=== PATIENT | male | born 1950 | race Caucasian/White ===

== ENCOUNTER 2017-03-28 21:29 | Emergency (ER) | payer OTHER ==
[~2017-03-28] VITALS: Ht 182.9 cm; Wt 79.0 kg
[~2017-03-28 21:29] MED LIST: ALPR1TAB2 PO; ASPI-621 PO; ASPI325T4 PO; ATOR10TA PO; ATOR40TA78 PO; CLOP75TA22 PO; ENAL2.5T32 PO; ISOS60TA36 PO; METO-99 PO; METO25TA35 PO; NITR0.4T SL; RIVA10TA PO; TICA90TA PO; VALS160T3 PO
[2017-03-28] MEDS ORDERED: SODIUM CHLORIDE 0.9% 1,000ML IVBOLUS ONE (22:00)
[2017-03-28] MEDS ORDERED: SODIUM CHLORIDE FLUSH 10ML SYR IVF ONE (22:00)
[2017-03-28] MEDS ORDERED: PLEASE ENTER HEIGHT AND WEIGHT MC SCH (22:00)
[2017-03-28 22:28] LABS: ASPARTATE AMINO TRANSFERASE 19 U/L (15-37); BLOOD UREA NITROGEN 36 mg/dL (7-18)
[2017-03-28 23:27] VITALS: BP 112/71
== END 2017-03-28 23:30 | disposition home or self-care (01) ==
LOC: ED 22:54
DX: R11.2 Nausea with vomiting, unspecified (principal); R10.13 Epigastric pain; E78.5 Hyperlipidemia, unspecified; I11.0 Hypertensive heart disease with heart failure; I50.9 Heart failure, unspecified; I25.810 Atherosclerosis of coronary artery bypass graft(s) without angina pectoris; I25.2 Old myocardial infarction; Z95.1 Presence of aortocoronary bypass graft; F17.200 Nicotine dependence, unspecified, uncomplicated
CPT/HCPCS: 36415; 74020; 80053; 83690; 85025; 93005; 96360; 99285; J7030

== ENCOUNTER 2017-04-17 23:20 | Observation (INO) | payer OTHER ==
[~2017-04-17] VITALS: Ht 185.4 cm; Wt 78.3 kg
[2017-04-17] MEDS ORDERED: SODIUM CHLORIDE 0.9% 1,000 ML IV ONE (23:55)
[2017-04-17] MEDS ORDERED: ALBUTEROL/IPRATROPIUM 2.5MG/0.5MG, 3 ML ONE (23:59)
[2017-04-18] MEDS ORDERED: methylPREDNISolone SOD SUCC 125 MG/2 ML IVP ONE
[2017-04-18] MEDS ORDERED: SODIUM CHLORIDE FLUSH 10ML SYR IVF ONE
[2017-04-18] MEDS ORDERED: ALBUTEROL/IPRATROPIUM 2.5MG/0.5MG, 3 ML NPPB ONE
[2017-04-18] MEDS ORDERED: methylPREDNISolone SOD SUCC 125 MG/2 ML ONE (00:09)
[2017-04-18 00:21] LABS: ASPARTATE AMINO TRANSFERASE 34 U/L (15-37); BLOOD UREA NITROGEN 22 mg/dL (7-18)
[2017-04-18 00:29] LABS: IS PT STATUS REG ER OR PRE ER? YES
[2017-04-18 01:33] VITALS: BP 116/68
[2017-04-18] MEDS ORDERED: POLYETHYLENE GLYCOL 17 GM PACKET PO PRN (03:30)
[2017-04-18] MEDS ORDERED: TRAZODONE 50MG TABLET PO PRN (03:30)
[2017-04-18] MEDS ORDERED: BISACODYL 10 MG SUPP PR PRN (03:30)
[2017-04-18] MEDS ORDERED: LABETALOL 5MG/ML, 20ML IVPush PRN (03:30)
[2017-04-18] MEDS ORDERED: DOCUSATE 100 MG CAPSULE PO PRN (03:30)
[2017-04-18] MEDS ORDERED: ALBUTEROL/IPRATROPIUM 2.5MG/0.5MG, 3 ML NPPB PRN (04:00)
[2017-04-18] MEDS: NICOTINE 7 MG/24 HR PATCH.TD24 TD SCH (04:58)
[2017-04-18] MEDS: ALBUTEROL/IPRATROPIUM 2.5MG/0.5MG, 3 ML NPPB SCH ×4 (07:10→21:06)
[2017-04-18 07:15] LABS: IS PT STATUS REG ER OR PRE ER? NO
[2017-04-18 07:29] VITALS: BP 138/81
[2017-04-18] MEDS ORDERED: ATORVASTATIN 40 MG TABLET PO SCH (09:00)
[2017-04-18] MEDS ORDERED: MAGNESIUM SULFATE PMX 2GM/50ML 50 ML IV ONE (09:00)
[2017-04-18] MEDS: VALSARTAN 160 MG TABLET PO SCH (09:07)
[2017-04-18] MEDS: METOPROLOL TARTRATE 100 MG TABLET PO SCH (09:07)
[2017-04-18] MEDS: ASPIRIN 81 MG TABLET CHEW PO SCH (09:07)
[2017-04-18 09:10] VITALS: BP 156/96
[2017-04-18 12:49] LABS: IS PT STATUS REG ER OR PRE ER? NO
[2017-04-18 14:53] VITALS: BP 126/74
[2017-04-18] MEDS: RIVAROXABAN 10 MG TABLET PO SCH (18:06)
[2017-04-18 19:45] VITALS: BP 108/68
[2017-04-18] MEDS ORDERED: OMNIPAQUE 350 MG/ML, 100ML BOTTLE ONE (21:35)
[2017-04-19 00:42] VITALS: BP 104/63
[2017-04-19] MEDS: NICOTINE 7 MG/24 HR PATCH.TD24 TD SCH (03:19)
[2017-04-19] MEDS: ALBUTEROL/IPRATROPIUM 2.5MG/0.5MG, 3 ML NPPB SCH (07:00)
[2017-04-19 07:09] VITALS: BP 117/74
[2017-04-19] MEDS ORDERED: ASPI-515 PO (08:19)
[2017-04-19] MEDS: VALSARTAN 160 MG TABLET PO SCH (09:04)
[2017-04-19] MEDS: ASPIRIN 81 MG TABLET CHEW PO SCH (09:04)
[2017-04-19] MEDS: METOPROLOL TARTRATE 100 MG TABLET PO SCH (09:04)
[2017-04-19] MEDS: RIVAROXABAN 10 MG TABLET PO SCH (09:04)
[2017-04-19] MEDS ORDERED: ATORVASTATIN 40 MG TABLET PO SCH (21:00)
== END 2017-04-19 11:10 | disposition home or self-care (01) ==
LOC: ED 04-18 00:42 → INTOOBSV 04-18 00:54 → EDIP 04-18 00:54 → 5SO 04-18 01:29 → DCLOUNGE 04-19 10:55 → UNDODISIN 04-19 11:10
PROVIDERS: ADMIT Internal Medicine; ATTEND Internal Medicine
DX: R07.89 Other chest pain (principal); I25.10 Atherosclerotic heart disease of native coronary artery without angina pectoris; I11.0 Hypertensive heart disease with heart failure; I50.22 Chronic systolic (congestive) heart failure; B34.9 Viral infection, unspecified; J44.9 Chronic obstructive pulmonary disease, unspecified; I48.0 Paroxysmal atrial fibrillation; I25.2 Old myocardial infarction; I34.0 Nonrheumatic mitral (valve) insufficiency; E78.5 Hyperlipidemia, unspecified; F12.10 Cannabis abuse, uncomplicated; F41.9 Anxiety disorder, unspecified; F17.210 Nicotine dependence, cigarettes, uncomplicated; Z95.1 Presence of aortocoronary bypass graft; Z90.49 Acquired absence of other specified parts of digestive tract; Z85.840 Personal history of malignant neoplasm of eye; Z71.6 Tobacco abuse counseling; Z95.5 Presence of coronary angioplasty implant and graft; Z88.5 Allergy status to narcotic agent; Z82.49 Family history of ischemic heart disease and other diseases of the circulatory system; Z84.89 Family history of other specified conditions; Z79.01 Long term (current) use of anticoagulants; Z86.718 Personal history of other venous thrombosis and embolism; Z86.79 Personal history of other diseases of the circulatory system
CPT/HCPCS: 36415; 71010; 71275; 80053; 83735; 83880; 84439; 84443; 84484; 85025; 85379; 85610; 85730; 93005; 93306; 94640; 96361; 96365; 96375; 99285; G0378; J2930; J3475; J7030; Q9967; 96374; J7620

== ENCOUNTER → 2017-08-23 | Outpatient (CLI) | payer OTHER ==
[~2017-08-23] MED LIST changes: +ASPI-515 PO; +ASPI325T17 PO; -ASPI325T4 PO; -CLOP75TA22 PO; +CLOP75TA52 PO
[2017-08-23 12:36] LABS: ASPARTATE AMINO TRANSFERASE 23 U/L (15-37); BLOOD UREA NITROGEN 17 mg/dL (7-18)
== END | disposition home or self-care (01) ==
LOC: LAB 10:57
PROVIDERS: ATTEND Physician Assistant Medical
DX: I10 Essential (primary) hypertension (principal); E78.2 Mixed hyperlipidemia
CPT/HCPCS: 36415; 80053; 80061

== ENCOUNTER 2017-10-06 01:52 | Observation (INO) | payer OTHER ==
[~2017-10-06] VITALS: Ht 182.9 cm; Wt 79.2 kg
[2017-10-06] MEDS ORDERED: morphine SULFATE 10 MG/ML, 1ML ONE ×2 (02:15→03:37)
[2017-10-06] MEDS ORDERED: ONDANSETRON 2MG/ML, 2ML ONE ×2 (02:16→05:29)
[2017-10-06] MEDS: MORPHINE SULFATE 4 MG/ML, 1ML IVPush PRN ×2 (02:19→03:38)
[2017-10-06] MEDS ORDERED: ONDANSETRON 2MG/ML, 2ML IVPush ONE (02:30)
[2017-10-06 02:31] LABS: HEMATOCRIT 44.5 % (39.2-51.8); HEMOGLOBIN 14.7 g/dL (13.7-18.0); WHITE BLOOD COUNT 11.7 x10^3/uL (3.4-10)
[2017-10-06 02:43] LABS: ASPARTATE AMINO TRANSFERASE 18 U/L (15-37); BLOOD UREA NITROGEN 26 mg/dL (7-18)
[2017-10-06 02:48] LABS: IS PT STATUS REG ER OR PRE ER? YES
[2017-10-06] MEDS ORDERED: SODIUM CHLORIDE 0.9% 1,000 ML IV ONE (04:08)
[2017-10-06] MEDS ORDERED: MORPHINE SULFATE 4 MG/ML, 1ML IVPush PRN (04:30)
[2017-10-06] MEDS ORDERED: NITROGLYCERIN 0.4 MG/SPRAY SL PRN (04:30)
[2017-10-06] MEDS ORDERED: LORazepam 2 MG/ML, 1ML IVPush PRN (04:30)
[2017-10-06] MEDS ORDERED: ONDANSETRON 2MG/ML, 2ML IVPush PRN (04:30)
[2017-10-06] MEDS ORDERED: NITROGLYCERIN 0.4 MG BOTTLE (25 TABS) SL PRN (04:30)
[2017-10-06] MEDS ORDERED: hydrALAzine 20 MG/ML, 1ML IVPush PRN (04:30)
[2017-10-06] MEDS ORDERED: HYDROmorphone 1 MG/ML, 1ML ONE (05:29)
[2017-10-06] MEDS: ONDANSETRON 2MG/ML, 2ML IVP PRN ×3 (05:33→20:26)
[2017-10-06] MEDS: HYDROmorphone 2 MG/ML, 1ML IVPush PRN ×5 (05:34→20:27)
[2017-10-06 06:06] LABS: IS PT STATUS REG ER OR PRE ER? YES
[2017-10-06 08:15] LABS: IS PT STATUS REG ER OR PRE ER? YES
[2017-10-06 09:55] VITALS: BP_SYST 170; BP_SYST 185; BP_DIAS 110; BP_DIAS 98
[2017-10-06] MEDS: PANTOPRAZOLE 40 MG IV IVPush SCH (10:34)
[2017-10-06] MEDS: CLOPIDOGREL 75 MG TABLET PO SCH (10:36)
[2017-10-06] MEDS: VALSARTAN 160 MG TABLET PO SCH (10:36)
[2017-10-06] MEDS: ASPIRIN 81 MG TABLET EC PO SCH (10:36)
[2017-10-06] MEDS: SODIUM CHLORIDE FLUSH 10ML SYR IVF SCH ×2 (10:37→20:26)
[2017-10-06] MEDS: ATORVASTATIN 40 MG TABLET PO SCH (10:44)
[2017-10-06] MEDS: METOPROLOL TARTRATE 100 MG TABLET PO SCH (10:44)
[2017-10-06 11:27] LABS: IS PT STATUS REG ER OR PRE ER? NO
[2017-10-06 13:06] VITALS: BP 161/85
[2017-10-06 16:56] VITALS: BP 141/86
[2017-10-06] MEDS: RIVAROXABAN 10 MG TABLET PO SCH (17:33)
[2017-10-06] MEDS ORDERED: OMNIPAQUE 350 MG/ML, 100ML BOTTLE ONE (18:11)
[2017-10-06 20:17] VITALS: BP 128/78
[2017-10-06] MEDS: NICOTINE 14MG/24 HR PATCH.TD24 TD SCH (20:26)
[2017-10-07 01:13] VITALS: BP 130/83
[2017-10-07] MEDS: HYDROmorphone 2 MG/ML, 1ML IVPush PRN ×5 (01:21→23:05)
[2017-10-07 05:17] LABS: HEMATOCRIT 40.3 % (39.2-51.8); HEMOGLOBIN 13.3 g/dL (13.7-18.0); WHITE BLOOD COUNT 11.4 x10^3/uL (3.4-10)
[2017-10-07 05:20] LABS: BLOOD UREA NITROGEN 16 mg/dL (7-18)
[2017-10-07] MEDS: PANTOPRAZOLE 40 MG IV IVPush SCH (07:53)
[2017-10-07] MEDS: ONDANSETRON 2MG/ML, 2ML IVP PRN ×2 (07:55→16:25)
[2017-10-07 07:57] VITALS: BP 130/70
[2017-10-07] MEDS: ATORVASTATIN 40 MG TABLET PO SCH (08:04)
[2017-10-07] MEDS: ASPIRIN 81 MG TABLET EC PO SCH (08:04)
[2017-10-07] MEDS: SODIUM CHLORIDE FLUSH 10ML SYR IVF SCH ×2 (08:04→21:03)
[2017-10-07] MEDS: METOPROLOL TARTRATE 100 MG TABLET PO SCH (08:04)
[2017-10-07] MEDS: CLOPIDOGREL 75 MG TABLET PO SCH (08:04)
[2017-10-07] MEDS: VALSARTAN 160 MG TABLET PO SCH (08:10)
[2017-10-07] MEDS ORDERED: AMLODIPINE 5 MG TABLET PO SCH (11:30)
[2017-10-07 12:52] VITALS: BP 117/72
[2017-10-07] MEDS ORDERED: METHOCARBAMOL 750 MG TABLET PO ONE (13:30)
[2017-10-07] MEDS ORDERED: KETOROLAC 30 MG/1 ML IVPush PRN (13:30)
[2017-10-07] MEDS ORDERED: METO-95 PO (14:47)
[2017-10-07] MEDS: RIVAROXABAN 10 MG TABLET PO SCH (16:25)
[2017-10-07] MEDS ORDERED: FLU VACC QS2017-18 (36MOS+) UP/PF 0.5 ML IM-VACC ONE (17:00)
[2017-10-07 19:14] VITALS: BP 116/68
[2017-10-07] MEDS: NICOTINE 14MG/24 HR PATCH.TD24 TD SCH (20:30)
[2017-10-07] MEDS: METHOCARBAMOL 500 MG TABLET PO SCH ×2 (21:00→21:03)
[2017-10-07] MEDS: KETOROLAC 30 MG/1 ML IVPush SCH (21:03)
[2017-10-08] MEDS: KETOROLAC 30 MG/1 ML IVPush SCH ×4 (02:02→21:31)
[2017-10-08 02:29] VITALS: BP 149/91
[2017-10-08] MEDS: METHOCARBAMOL 500 MG TABLET PO SCH ×4 (06:08→21:32)
[2017-10-08] MEDS: METOPROLOL SUCCINATE 100 MG TAB.ER.24H PO SCH (06:08)
[2017-10-08 07:58] VITALS: BP 145/86
[2017-10-08] MEDS: PANTOPRAZOLE 40 MG IV IVPush SCH (08:18)
[2017-10-08] MEDS: ATORVASTATIN 40 MG TABLET PO SCH (10:32)
[2017-10-08] MEDS: ASPIRIN 81 MG TABLET EC PO SCH (10:32)
[2017-10-08] MEDS: VALSARTAN 160 MG TABLET PO SCH (10:32)
[2017-10-08] MEDS: CLOPIDOGREL 75 MG TABLET PO SCH (10:32)
[2017-10-08] MEDS: SODIUM CHLORIDE FLUSH 10ML SYR IVF SCH ×2 (10:33→21:31)
[2017-10-08 14:50] VITALS: BP 135/77
[2017-10-08] MEDS: HYDROmorphone 2 MG/ML, 1ML IVPush PRN ×2 (15:08→21:31)
[2017-10-08] MEDS: RIVAROXABAN 10 MG TABLET PO SCH (17:07)
[2017-10-08 19:07] VITALS: BP 127/81
[2017-10-08] MEDS: NICOTINE 14MG/24 HR PATCH.TD24 TD SCH (20:30)
[2017-10-08] MEDS: ONDANSETRON 2MG/ML, 2ML IVP PRN (21:31)
[2017-10-09 01:05] VITALS: BP 148/76
[2017-10-09] MEDS: KETOROLAC 30 MG/1 ML IVPush SCH ×2 (03:54→12:03)
[2017-10-09] MEDS: HYDROmorphone 2 MG/ML, 1ML IVPush PRN (03:54)
[2017-10-09] MEDS: METHOCARBAMOL 500 MG TABLET PO SCH ×2 (06:10→12:03)
[2017-10-09] MEDS: METOPROLOL SUCCINATE 100 MG TAB.ER.24H PO SCH (06:11)
[2017-10-09] MEDS ORDERED: PANTOPROZOLE 40MG TABLET PO SCH (07:30)
[2017-10-09 08:01] VITALS: BP 159/90
[2017-10-09] MEDS: VALSARTAN 160 MG TABLET PO SCH (08:27)
[2017-10-09] MEDS: ASPIRIN 81 MG TABLET EC PO SCH (08:27)
[2017-10-09] MEDS: CLOPIDOGREL 75 MG TABLET PO SCH (08:27)
[2017-10-09] MEDS: SODIUM CHLORIDE FLUSH 10ML SYR IVF SCH (08:27)
[2017-10-09] MEDS: ATORVASTATIN 40 MG TABLET PO SCH (08:27)
[2017-10-09 08:50] LABS: ASPARTATE AMINO TRANSFERASE 16 U/L (15-37); BLOOD UREA NITROGEN 28 mg/dL (7-18)
[2017-10-09 10:31] LABS: PATH.CAST-FLAG NOT PRESENT; SPERM-FLAG NOT PRESENT; SRC-FLAG NOT PRESENT; XTAL-FLAG NOT PRESENT; YLC-FLAG NOT PRESENT
[2017-10-09] MEDS ORDERED: IBUP-1222 PO (13:07)
[2017-10-09] MEDS ORDERED: TRAM50TA2 PO (13:07)
[2017-10-09] MEDS ORDERED: CYCL-259 PO (13:21)
[2017-10-09 13:28] VITALS: BP 132/80
== END 2017-10-09 15:35 | disposition home or self-care (01) ==
LOC: ED 02:09 → EDIP 04:08 → INTOOBSV 04:08 → 5SO 09:48 → 3NE 10-07 18:19 → DCLOUNGE 10-09 15:25
PROVIDERS: ADMIT Family Medicine; ATTEND Family Medicine
DX: R10.9 Unspecified abdominal pain (principal); I25.10 Atherosclerotic heart disease of native coronary artery without angina pectoris; I71.6 Thoracoabdominal aortic aneurysm, without rupture; I25.41 Coronary artery aneurysm; I24.9 Acute ischemic heart disease, unspecified; I71.2 Thoracic aortic aneurysm, without rupture; K40.20 Bilateral inguinal hernia, without obstruction or gangrene, not specified as recurrent; K43.9 Ventral hernia without obstruction or gangrene; N20.0 Calculus of kidney; N28.1 Cyst of kidney, acquired; I11.0 Hypertensive heart disease with heart failure; I50.9 Heart failure, unspecified; E78.5 Hyperlipidemia, unspecified; F17.200 Nicotine dependence, unspecified, uncomplicated; Z86.79 Personal history of other diseases of the circulatory system; Z95.1 Presence of aortocoronary bypass graft; Z95.5 Presence of coronary angioplasty implant and graft
CPT/HCPCS: 36415; 74177; 80048; 80053; 80061; 81001; 83690; 84484; 85025; 90471; 90686; 96361; 96374; 96375; 96376; 99285; C9113; G0378; J1170; J1885; J2405; J7030; Q9967

== ENCOUNTER 2018-08-31 07:32 | Observation (INO) | payer MEDICARE, OTHER ==
[~2018-08-31] VITALS: Ht 182.9 cm; Wt 81.9 kg
[~2018-08-31 07:32] MED LIST changes: +CYCL-259 PO; +IBUP-1222 PO; +METO-95 PO; +TRAM50TA2 PO
[2018-08-31 08:59] LABS: BASOPHILS # (AUTO) 0.06 x10^3/uL (0-0.1); BASOPHILS % (AUTO) 1 % (0-1); EOSINOPHILS # (AUTO) 0.27 x10^3/uL (0-0.4); EOSINOPHILS % (AUTO) 3 % (1-7); LYMPHOCYTES # (AUTO) 1.99 x10^3/uL (1-3.4); LYMPHOCYTES % (AUTO) 24 % (22-44); MD NO; MEAN CORPUSCULAR HGB CONC 33.7 g/dL (33.2-36.2); MEAN PLATELET VOLUME 8.4 fL (7.4-10.4); MONOCYTES # (AUTO) 0.67 x10^3/uL (0.2-0.8); MONOCYTES % (AUTO) 8 % (2-9); NEUTROPHILS # (AUTO) 5.42 x10^3/uL (1.8-6.8); NEUTROPHILS % (AUTO) 64 % (42-75); PLATELET COUNT 216 x10^3/uL (130-400); RED BLOOD COUNT 4.85 x10^6/uL (4.38-5.82); RED CELL DISTRIBUTION WIDTH 14.1 % (9.4-14.8)
[2018-08-31 09:07] LABS: ALBUMIN 3.7 g/dL (3.4-5.0); ANION GAP 4 mmol/L (5-15); CALCIUM 8.8 mg/dL (8.5-10.1); CHLORIDE 112 mmol/L (98-107); CREATININE 1.01 mg/dL (0.7-1.3)
[2018-08-31] MEDS ORDERED: SODIUM CHLORIDE FLUSH 10ML SYR IVF ONE (10:00)
[2018-08-31] MEDS ORDERED: EPHEDRINE 50 MG/ML, 1ML ONE (11:06)
[2018-08-31 12:44] VITALS: BP 151/98
[2018-08-31] MEDS ORDERED: FENTANYL PF 100 MCG/2ML ONE (14:11)
[2018-08-31] MEDS ORDERED: HYDROcodone/APAP 7.5-325MG/15ML UDC PO PRN (14:30)
[2018-08-31] MEDS ORDERED: FENTANYL PF 100 MCG/2ML IV PRN (14:30)
[2018-08-31] MEDS ORDERED: PROCHLORPERAZINE 5 MG/ML, 2ML IV PRN (14:30)
[2018-08-31] MEDS ORDERED: LABETALOL 5MG/ML, 20ML IV PRN (14:30)
[2018-08-31] MEDS ORDERED: HYDROmorphone 1 MG/ML, 1ML IV PRN (14:30)
[2018-08-31] MEDS ORDERED: MEPERIDINE/PF 25MG/0.5ML IVPush PRN (14:30)
[2018-08-31] MEDS ORDERED: hydrALAzine 20 MG/ML, 1ML IV PRN (14:30)
[2018-08-31] MEDS ORDERED: DIPHENHYDRAMINE 50 MG/ML, 1ML IVPush PRN (14:30)
[2018-08-31] MEDS ORDERED: NEOSTIGMINE 1 MG/ML, 10ML ONE ×2 (14:59→15:43)
[2018-08-31] MEDS ORDERED: BUPIVACAINE/PF 0.5% INFIL ONE (15:32)
[2018-08-31] MEDS ORDERED: SUCCINYLCHOLINE 20 MG/ML, 10ML ONE (15:43)
[2018-08-31] MEDS ORDERED: ROCURONIUM 10MG/ML,5ML ONE (15:43)
[2018-08-31] MEDS ORDERED: ONDANSETRON 2MG/ML, 2ML ONE (15:43)
[2018-08-31] MEDS ORDERED: CEFAZOLIN 1,000 MG ONE (15:43)
[2018-08-31] MEDS ORDERED: DEXAMETHASONE 4 MG/ML, 1ML ONE (15:43)
[2018-08-31] MEDS ORDERED: GLYCOPYRROLATE 0.2MG/1ML, 5ML ONE (15:43)
[2018-08-31] MEDS ORDERED: PROPOFOL 10 MG/ML, 20ML ONE (15:43)
[2018-08-31] MEDS ORDERED: HYDROcodone/APAP 5/325 TABLET PO PRN (16:00)
[2018-08-31] MEDS ORDERED: ONDANSETRON 2MG/ML, 2ML IVPush PRN (16:00)
[2018-08-31] MEDS ORDERED: HYDROmorphone 1 MG/ML, 1ML IM PRN (16:00)
[2018-08-31] MEDS ORDERED: ACETAMINOPHEN 325 MG TABLET PO PRN (16:00)
[2018-08-31] MEDS ORDERED: PROMETHAZINE 25 MG/ML, 1ML IM PRN (16:00)
[2018-08-31] MEDS ORDERED: HYDR-3240 PO (17:00)
[2018-08-31] MEDS ORDERED: ONDA4TAB7 PO (17:01)
== END 2018-08-31 18:32 | disposition home or self-care (01) ==
LOC: ED 09:16 → EDIP 09:39 → INTOOBSV 09:39 → 3NW 10:32
PROVIDERS: ADMIT Orthopaedic Surgery; ATTEND Orthopaedic Surgery
DX: S62.627B Displaced fracture of middle phalanx of left little finger, initial encounter for open fracture (principal); E78.5 Hyperlipidemia, unspecified; F12.90 Cannabis use, unspecified, uncomplicated; F17.210 Nicotine dependence, cigarettes, uncomplicated; I11.0 Hypertensive heart disease with heart failure; I25.10 Atherosclerotic heart disease of native coronary artery without angina pectoris; I25.2 Old myocardial infarction; I48.91 Unspecified atrial fibrillation; I50.9 Heart failure, unspecified; I71.4 Abdominal aortic aneurysm, without rupture; I73.9 Peripheral vascular disease, unspecified; J44.9 Chronic obstructive pulmonary disease, unspecified; Z87.442 Personal history of urinary calculi; Z95.1 Presence of aortocoronary bypass graft; Z95.5 Presence of coronary angioplasty implant and graft; W54.0XXA Bitten by dog, initial encounter; Y92.89 Other specified places as the place of occurrence of the external cause; Y93.89 Activity, other specified
CPT/HCPCS: 20690; 26735; 36415; 71045; 73140; 76000; 80048; 82040; 85025; 93005; 99285; G0378; J0330; J0690; J1100; J2405; J2704; J2710; J3010; J3490

== ENCOUNTER 2019-01-18 14:00 | Inpatient (IN) | payer MEDICARE, OTHER ==
[~2019-01-18] VITALS: Ht 182.9 cm; Wt 86.0 kg
[~2019-01-18 14:00] MED LIST changes: -ASPI-621 PO; +ASPI81TA45 PO; +HYDR-3240 PO; +ONDA4TAB7 PO; -RIVA10TA PO; +RIVA10TA2 PO
--- NOTE | 2019-01-18 14:54 | NUR ---
AFTER IV ESTABLISHED AND BLOOD DRAWN PT TO XRAY
[2019-01-18] MEDS ORDERED: ONDANSETRON 2MG/ML, 2ML IVPush ONE (15:00)
[2019-01-18 15:03] LABS: BASOPHILS # (AUTO) 0.03 x10^3/uL (0-0.1); BASOPHILS % (AUTO) 0 % (0-1); EOSINOPHILS # (AUTO) 0.11 x10^3/uL (0-0.4); EOSINOPHILS % (AUTO) 1 % (1-7); LYMPHOCYTES # (AUTO) 1.53 x10^3/uL (1-3.4); LYMPHOCYTES % (AUTO) 15 % (22-44); MD NO; MEAN CORPUSCULAR HEMOGLOBIN 29.5 pg (27.5-34.5); MEAN CORPUSCULAR HGB CONC 33.1 g/dL (33.2-36.2); MEAN PLATELET VOLUME 8.4 fL (7.4-10.4); MONOCYTES # (AUTO) 0.44 x10^3/uL (0.2-0.8); MONOCYTES % (AUTO) 4 % (2-9); NEUTROPHILS # (AUTO) 7.98 x10^3/uL (1.8-6.8); NEUTROPHILS % (AUTO) 79 % (42-75); PLATELET COUNT 212 x10^3/uL (130-400); RED BLOOD COUNT 5.68 x10^6/uL (4.38-5.82); RED CELL DISTRIBUTION WIDTH 14.1 % (9.4-14.8)
[2019-01-18 15:14] LABS: ALANINE AMINOTRANSFERASE 27 U/L (12-78); ALBUMIN 3.9 g/dL (3.4-5.0); ANION GAP 4 mmol/L (5-15); CHLORIDE 110 mmol/L (98-107); CREATININE 1.09 mg/dL (0.7-1.3)
[2019-01-18 15:18] LABS: ALKALINE PHOSPHATASE 137 U/L (45-117); BILIRUBIN,TOTAL 1.3 mg/dL (0.2-1.0); TOTAL PROTEIN 7.7 g/dL (6.4-8.2); TROPONIN I < 0.015 ng/mL (0.000-0.045)
[2019-01-18] MEDS ORDERED: MORPHINE SULFATE 4 MG/ML, 1ML ONE ×2 (15:42→17:21)
[2019-01-18] MEDS ORDERED: ONDANSETRON 2MG/ML, 2ML ONE ×2 (15:42→19:43)
--- NOTE | 2019-01-18 15:47 | NUR ---
TASK RN: Pt unhooked from monitors, ambulated to bathroom, no assistance required. Urine sample requested.
[2019-01-18] MEDS: MORPHINE SULFATE 4 MG/ML, 1ML IVPush PRN ×2 (15:55→17:24)
--- NOTE | 2019-01-18 15:55 | NUR ---
TASK RN: Pt back to room from bathroom, replaced on all monitors. Pt aware of plan for CT scan. Pt medicated per JAN.
[2019-01-18] MEDS ORDERED: LABETALOL 5 MG/ML SYRINGE IVPush ONE (16:00)
--- NOTE | 2019-01-18 16:25 | NUR ---
PAIN IMPROVED AFTER MEDICATED FOR SAME. BLOOD PRESSURE ALSO IMPROVED, 150/94.
[2019-01-18 16:28] LABS: MICROSCOPIC AUTO
[2019-01-18] MEDS ORDERED: OMNIPAQUE 350 MG/ML, 100ML BOTTLE ONE (16:56)
[2019-01-18 17:02] LABS: CULTURE INDICATED? NO
--- NOTE | 2019-01-18 17:24 | NUR ---
BREAK RN: Pt medicated per MAR.
--- NOTE | 2019-01-18 17:54 | NUR ---
dr eduardo spoke with dr elisha winn and dr banegas
--- NOTE | 2019-01-18 18:22 | NUR ---
REPORT TO VENOUS TELE AND REPORT TO [facility]. PT TO BE TRANSPORTED ON MONITOR TO OR BY TECH
[2019-01-18] MEDS ORDERED: BUPIVACAINE/PF-EPI 0.5% 1:200K ONE (18:29)
[2019-01-18] MEDS ORDERED: NEOSTIGMINE 1 MG/ML, 10ML ONE (18:56)
[2019-01-18] MEDS ORDERED: GLYCOPYRROLATE 0.2MG/1ML, 5ML ONE (18:56)
[2019-01-18] MEDS ORDERED: LABETALOL 5 MG/ML SYRINGE IVPush PRN (19:00)
[2019-01-18] MEDS ORDERED: FENTANYL PF 250 MCG/5ML ONE (19:24)
[2019-01-18] MEDS ORDERED: THROMBIN 5,000 UNIT VIAL TP ONE (19:34)
[2019-01-18] MEDS ORDERED: PHENYLEPHRINE 10 MG/ML ONE (19:43)
[2019-01-18] MEDS ORDERED: ROCURONIUM 10MG/ML,5ML ONE (19:43)
[2019-01-18] MEDS ORDERED: CEFOTETAN PMX 2GM/50ML 50 ML ONE (19:43)
[2019-01-18] MEDS ORDERED: PROPOFOL 10 MG/ML, 20ML ONE (19:43)
[2019-01-18] MEDS ORDERED: SUCCINYLCHOLINE 20 MG/ML, 10ML ONE (19:43)
[2019-01-18] MEDS ORDERED: DEXAMETHASONE 4 MG/ML, 1ML ONE (19:43)
[2019-01-18] MEDS ORDERED: MEPERIDINE/PF 25MG/0.5ML IVPush PRN (20:00)
[2019-01-18] MEDS ORDERED: HYDROcodone/APAP 7.5-325MG/15ML UDC PO PRN (20:00)
[2019-01-18] MEDS ORDERED: HYDROmorphone 2 MG/ML, 1ML IVPush PRN (20:00)
[2019-01-18] MEDS ORDERED: PROMETHAZINE 25 MG/ML, 1ML IV PRN (20:00)
[2019-01-18] MEDS ORDERED: FENTANYL PF 100 MCG/2ML IV PRN (20:00)
[2019-01-18] MEDS ORDERED: hydrALAzine 20 MG/ML, 1ML IV PRN (20:00)
[2019-01-18] MEDS ORDERED: HALOPERIDOL 5 MG/ML IV PRN (20:00)
[2019-01-18] MEDS ORDERED: HYDROcodone/APAP 7.5-325MG/15ML UDC ONE (20:22)
[2019-01-18] MEDS ORDERED: MEPERIDINE/PF 25MG/ML,1ML ONE (20:32)
[2019-01-18] MEDS ORDERED: MORPHINE SULFATE 4 MG/ML, 1ML IVPush PRN (21:30)
[2019-01-18] MEDS ORDERED: ONDANSETRON 2MG/ML, 2ML IVPush PRN (22:00)
[2019-01-19 00:07] VITALS: BP 119/72
[2019-01-19 04:00] VITALS: BP 109/72
[2019-01-19 07:00] VITALS: BP 117/77
[2019-01-19] MEDS: METOPROLOL SUCCINATE 100 MG TAB.ER.24H PO SCH (07:39)
[2019-01-19] MEDS: HYDROcodone/APAP 5/325 TABLET PO PRN ×3 (07:39→23:45)
[2019-01-19] MEDS: ATORVASTATIN 40 MG TABLET PO SCH (07:39)
[2019-01-19 13:01] VITALS: BP 104/68
[2019-01-19 21:15] VITALS: BP 114/74
[2019-01-20 02:19] VITALS: BP 109/68
[2019-01-20] MEDS: HYDROcodone/APAP 5/325 TABLET PO PRN ×2 (06:10→12:40)
[2019-01-20] MEDS: ATORVASTATIN 40 MG TABLET PO SCH (08:00)
[2019-01-20] MEDS: METOPROLOL SUCCINATE 100 MG TAB.ER.24H PO SCH (08:00)
[2019-01-20 08:04] VITALS: BP 108/61
[2019-01-20] MEDS ORDERED: TAMSULOSIN 0.4 MG CAP.ER.24H PO SCH (09:00)
[2019-01-20] MEDS ORDERED: HYDR-3240 PO (13:19)
[2019-01-20 14:10] VITALS: BP 132/73
== END 2019-01-20 16:09 | disposition home or self-care (01) | DRG 352 ==
LOC: ED 17:01 → EDIP 17:50 → 4NOR 21:10
PROVIDERS: ADMIT Family Medicine; ATTEND Family Medicine
PROC: 03HY32Z Insertion of Monitoring Device into Upper Artery, Percutaneous Approach (ICD-10-PCS; 2019-01-18)
PROC: 0YU60JZ Supplement Left Inguinal Region with Synthetic Substitute, Open Approach (ICD-10-PCS; principal; 2019-01-18 18:00)
DX: K40.30 Unilateral inguinal hernia, with obstruction, without gangrene, not specified as recurrent (principal); J44.9 Chronic obstructive pulmonary disease, unspecified; E78.5 Hyperlipidemia, unspecified; F12.10 Cannabis abuse, uncomplicated; I48.91 Unspecified atrial fibrillation; I71.4 Abdominal aortic aneurysm, without rupture; I11.0 Hypertensive heart disease with heart failure; I25.10 Atherosclerotic heart disease of native coronary artery without angina pectoris; I72.2 Aneurysm of renal artery; I25.41 Coronary artery aneurysm; I50.9 Heart failure, unspecified; I73.9 Peripheral vascular disease, unspecified; K43.9 Ventral hernia without obstruction or gangrene; N50.89 Other specified disorders of the male genital organs; R33.9 Retention of urine, unspecified; Z82.49 Family history of ischemic heart disease and other diseases of the circulatory system; I25.2 Old myocardial infarction; Z86.79 Personal history of other diseases of the circulatory system; Z95.1 Presence of aortocoronary bypass graft; Z85.828 Personal history of other malignant neoplasm of skin; Z88.8 Allergy status to other drugs, medicaments and biological substances; Z82.5 Family history of asthma and other chronic lower respiratory diseases
CPT/HCPCS: 36415; 74022; 74177; 80053; 81001; 84484; 85025; 86850; 86900; 93005; 96374; 96375; 96376; 99285; G0378; J1100; J2175; J2405; J2704; J2710; J3010; J3490; Q9967; C1781; J0330; J0360; J2370

== ENCOUNTER 2019-02-04 16:15 | Emergency (ER) | payer OTHER ==
[~2019-02-04] VITALS: Ht 182.9 cm; Wt 79.6 kg
--- NOTE | 2019-02-04 16:48 | NUR ---
Pt ambulated to room, CXR complete. Lab at bedside. Pt changing into gown. Daughter at bedside.
[2019-02-04 17:09] LABS: ALANINE AMINOTRANSFERASE 55 U/L (12-78); ALBUMIN 2.9 g/dL (3.4-5.0); ANION GAP 5 mmol/L (5-15); CALCIUM 8.8 mg/dL (8.5-10.1); CHLORIDE 110 mmol/L (98-107); CREATININE 0.99 mg/dL (0.7-1.3)
[2019-02-04 17:11] LABS: BASOPHILS # (AUTO) 0.04 x10^3/uL (0-0.1); BASOPHILS % (AUTO) 1 % (0-1); EOSINOPHILS # (AUTO) 0.29 x10^3/uL (0-0.4); EOSINOPHILS % (AUTO) 3 % (1-7); LYMPHOCYTES % (AUTO) 20 % (22-44); MD NO; MEAN CORPUSCULAR HGB CONC 33.7 g/dL (33.2-36.2); MEAN CORPUSCULAR VOLUME 89.1 fL (81-97); MEAN PLATELET VOLUME 7.1 fL (7.4-10.4); MONOCYTES # (AUTO) 0.79 x10^3/uL (0.2-0.8); MONOCYTES % (AUTO) 8 % (2-9); NEUTROPHILS # (AUTO) 6.58 x10^3/uL (1.8-6.8); NEUTROPHILS % (AUTO) 69 % (42-75); PLATELET COUNT 529 x10^3/uL (130-400); RED BLOOD COUNT 4.45 x10^6/uL (4.38-5.82); RED CELL DISTRIBUTION WIDTH 15.1 % (9.4-14.8)
[2019-02-04 17:14] LABS: ALKALINE PHOSPHATASE 202 U/L (45-117); BILIRUBIN,TOTAL 0.6 mg/dL (0.2-1.0); TOTAL PROTEIN 7.8 g/dL (6.4-8.2); TROPONIN I < 0.015 ng/mL (0.000-0.045)
--- NOTE | 2019-02-04 17:29 | NUR ---
Dr. Salmon at bedside to evaluate pt. POC discussed. PIV started.
[2019-02-04] MEDS ORDERED: MORPHINE SULFATE 4 MG/ML, 1ML ONE (17:42)
--- NOTE | 2019-02-04 17:47 | NUR ---
Pt medicated per JAN. Pt moved to room 26, as he complained that the television in room 23 was not working.
--- NOTE | 2019-02-04 17:59 | NUR ---
Pt to imaging, with tech, via gujojo.
[2019-02-04] MEDS ORDERED: MORPHINE SULFATE 4 MG/ML, 1ML IVPush PRN (18:00)
--- NOTE | 2019-02-04 18:50 | NUR ---
Pt back to room from imaging.
--- NOTE | 2019-02-04 19:05 | NUR ---
Dr. Salmon at bedside to discuss ED findings and POC.
[2019-02-04 19:30] VITALS: BP 134/64
--- NOTE | 2019-02-04 19:31 | NUR ---
Patient/Caregiver given discharge instructions and they have confirmed that they understand the instructions. Patient ambulatory with steady gait.
== END 2019-02-04 19:32 | disposition home or self-care (01) ==
LOC: ED 19:26
DX: L76.34 Postprocedural seroma of skin and subcutaneous tissue following other procedure (principal); I48.91 Unspecified atrial fibrillation; I25.2 Old myocardial infarction; J44.9 Chronic obstructive pulmonary disease, unspecified; I50.9 Heart failure, unspecified; Z72.9 Problem related to lifestyle, unspecified
CPT/HCPCS: 36415; 71045; 74177; 80053; 84484; 85025; 93005; 96374

== ENCOUNTER → 2019-03-13 | Outpatient (CLI) | payer OTHER ==
[~2019-03-13] MED LIST changes: +OMNIPAQUE 350 MG/ML, 100ML BOTTLE ONE
[2019-03-13 10:36] LABS: CREATININE 1.07 mg/dL (0.7-1.3)
== END | disposition home or self-care (01) ==
LOC: RAD 09:59
PROVIDERS: ATTEND Surgery Vascular Surgery
DX: I71.01 Dissection of thoracic aorta (principal); J43.9 Emphysema, unspecified; I71.4 Abdominal aortic aneurysm, without rupture; R91.8 Other nonspecific abnormal finding of lung field
CPT/HCPCS: 36415; 71275; 82565; Q9967

== ENCOUNTER 2019-04-28 11:11 | Emergency (ER) | payer OTHER ==
[~2019-04-28] VITALS: Ht 185.4 cm; Wt 78.8 kg
[~2019-04-28 11:11] MED LIST changes: -NITR0.4T SL; +NITR0.4T41 SL; -OMNIPAQUE 350 MG/ML, 100ML BOTTLE ONE
[2019-04-28 11:16] VITALS: BP 167/112
[2019-04-28 11:53] LABS: BASOPHILS # (AUTO) 0.04 x10^3/uL (0-0.1); BASOPHILS % (AUTO) 0 % (0-1); EOSINOPHILS # (AUTO) 0.05 x10^3/uL (0-0.4); EOSINOPHILS % (AUTO) 1 % (1-7); LYMPHOCYTES % (AUTO) 12 % (22-44); MD NO; MEAN CORPUSCULAR HEMOGLOBIN 28.1 pg (27.5-34.5); MEAN CORPUSCULAR HGB CONC 32.5 g/dL (33.2-36.2); MEAN CORPUSCULAR VOLUME 86.6 fL (81-97); MEAN PLATELET VOLUME 8.3 fL (7.4-10.4); MONOCYTES # (AUTO) 0.51 x10^3/uL (0.2-0.8); MONOCYTES % (AUTO) 5 % (2-9); NEUTROPHILS # (AUTO) 8.31 x10^3/uL (1.8-6.8); NEUTROPHILS % (AUTO) 82 % (42-75); PLATELET COUNT 277 x10^3/uL (130-400); RED BLOOD COUNT 5.45 x10^6/uL (4.38-5.82); RED CELL DISTRIBUTION WIDTH 14.9 % (9.4-14.8)
[2019-04-28 12:05] LABS: ALANINE AMINOTRANSFERASE 29 U/L (12-78); ALBUMIN 3.4 g/dL (3.4-5.0); ANION GAP 7 mmol/L (5-15); CALCIUM 8.9 mg/dL (8.5-10.1); CHLORIDE 109 mmol/L (98-107); CREATININE 2.06 mg/dL (0.7-1.3)
[2019-04-28 12:07] LABS: ALKALINE PHOSPHATASE 151 U/L (45-117); TOTAL PROTEIN 7.9 g/dL (6.4-8.2)
--- NOTE | 2019-04-28 14:54 | NUR ---
CALLED TWICE FOR REPEAT VS WITH NO ANSWER.
--- NOTE | 2019-04-28 15:04 | NUR ---
CALLED 3RD TIME WITH NO ANSWER IN LOBBY
--- NOTE | 2019-04-28 19:09 | NUR ---
PT RESULTS IN. PT DAUGHTER CONTACTED. PER DAUGHTER, PT CURRENTLY ADMITTED AT [id number].
== END 2019-04-28 15:06 | disposition left against medical advice (07) ==
LOC: ED 15:00
DX: R10.9 Unspecified abdominal pain (principal)
CPT/HCPCS: 36415; 80053; 85025; 93005; 99284